=== PATIENT | female | born 1990 ===

== ENCOUNTER → 2016-12-03 | Outpatient (CLI) | payer BC | END | disposition home or self-care (01) | LOC: C.PAPS 17:45 | PROVIDERS: ATTEND Physician Assistant | DX: Z01.419 Encounter for gynecological examination (general) (routine) without abnormal findings (principal) ==

== ENCOUNTER → 2017-01-05 | Outpatient (CLI) | payer BC ==
[2017-01-07 00:46] LABS: CHLAMYDIA TRACH RNA*** NOT DETECTED (NOT DETECTED); GC (NEIS GONORRHOEAE)RNA** NOT DETECTED (NOT DETECTED)
== END | disposition home or self-care (01) ==
LOC: C.LABSPEC 11:20
PROVIDERS: ATTEND Physician Assistant
DX: Z30.430 Encounter for insertion of intrauterine contraceptive device (principal)